=== PATIENT | female | born 1950 | race Caucasian/White ===

== ENCOUNTER 2020-03-25 15:34 | Emergency (ER) | payer MEDICARE, MEDICAID ==
[~2020-03-25] VITALS: Ht 160 cm; Wt 68.0 kg
[2020-03-25 16:50] VITALS: BP 119/67
--- NOTE | 2020-03-25 16:50 | NUR ---
ED Nurse Note: Pt sent in by Dr Agudelo for mononucla antibody. She was tested COVID + on 03/22. She styates she has bodyaches and chills, but no nausea or vomiting. She is alert and orientedx4, ambulatory. She has been seen by ERMD.
--- NOTE | 2020-03-25 16:52 | Emergency Room Report ---
History of Present Illness General Chief Complaint: Flu Like Symptoms Source: Patient Present Illness HPI 69-year-old female with history of hypertension and recent COVID-19 exposure ambulates into to the emergency department requesting IV monoclonal antibody. Patient was sent by her PCP Dr. Agudelo. Patient reports having 3 out of 10 severity body aches. She also reports increase in mucus. Patient denies fevers or chills. She denies history of asthma, COPD or smoking history. Patient reports that her roommate has been positive for Covid x2 weeks and did not disclose this to her until 1 week ago. She denies cough, shortness of breath, chest pain, palpitations, syncope, headaches, neck pain/stiffness, photophobia or dizziness. No other aggravating or relieving factors at this time. Allergies: Coded Allergies: PENICILLINS (Verified Allergy, Unknown, 03/25/20) Uncoded Allergies: EGGS (Allergy, Unknown, 03/25/20) COVID-19 Screening Contact w/high risk pt: No Experienced COVID-19 symptoms?: Yes COVID-19 Testing performed [employer]: Yes COVID-19 Screening: Negative COVID-19 COVID-19 Testing Source: 03/22/20 Patient History Past Medical History: see triage record, HTN Past Surgical History: none Pertinent Family History: none Social History: Denies: smoking, alcohol use, drug use Now: No Reviewed Nursing Documentation: PMH: Agreed; PSxH: Agreed Nursing Documentation-PMH Hx Hypertension: Yes Review of Systems All Other Systems: negative except mentioned in HPI Physical Exam Vital Signs Date Time Temp Pulse Resp B/P (MAP) Pulse Ox O2 Delivery O2 Flow Rate FiO2 03/25/20 15:44 98.2 86 15 115/65 (82) 95 Room Air Sp02 EP Interpretation: reviewed, normal General Appearance: no apparent distress, alert, GCS 15, non-toxic Head: normocephalic, atraumatic Eyes: bilateral eye normal inspection, bilateral eye PERRL ENT: hearing grossly normal, normal voice Neck: full range of motion Respiratory: chest non-tender, lungs clear, normal breath sounds, no respiratory distress, no accessory muscle use, no wheezing, speaking full sentences Cardiovascular #1: regular rate, rhythm Musculoskeletal: normal range of motion, gait/station normal, non-tender Neurologic: alert, motor strength/tone normal, oriented x3, sensory intact, responsive, speech normal Psychiatric: judgement/insight normal Skin: no rash, normal color Medical Decision Making PA Attestation Dr. Powers Is my supervising Physician whom patient management has been discussed with. Diagnostic Impression: Primary Impression: Close exposure to COVID-19 virus ER Course 69-year-old female with history of hypertension and recent COVID-19 exposure ambulates into to the emergency department requesting IV monoclonal antibody. Patient was sent by her PCP Dr. Agudelo. Patient reports having 3 out of 10 severity body aches. She also reports increase in mucus. Patient denies fevers or chills. She denies history of asthma, COPD or smoking history. Patient reports that her roommate has been positive for Covid x2 weeks and did not disclose this to her until 1 week ago. She denies cough, shortness of breath, chest pain, palpitations, syncope, headaches, neck pain/stiffness, photophobia or dizziness. No other aggravating or relieving factors at this time. Ddx considered but are not limited to Viral syndrome, Viral GE, URI, pneumonia, PE, strep pharyngitis, meningitis, COVID-19 Vital signs: Pt. is afebrile, the remaining VS are WNL H&PE are most consistent with Normal limited medical screening exam, patient is nontoxic in appearance in no acute distress not currently showing any symptoms and does not demonstrate increased respiratory effort or other signs of respiratory distress at this time. ORDERS: -Rapid COVID-19: NEGATIVE ED INTERVENTIONS: None required at this time. AT this time pt. does not meet current criteria and hospital protocol criteria to receive the EUA COVID monoclonal Ab treatment. This has been d/w pt. Pt. is not currently testing ( POSITIVE) for COVID and is a criteria that is not met. --PT. EDUCATION: Discussed self quarantine at home for recommended time of 10 days in accordance with CDC guidelines and [facility]. Discussed with patient that they will receive a copy of instructions of how to self quarantine as well as how to treat mild symptoms at home should they arise. Discussed with patient signs and symptoms that would indicate prompt return to the emergency department. Pt. verbalizes understanding and agreement with proposed treatment plan as well as reasons for ED return. This patient was evaluated in the context of the global COVID-19 pandemic, which necessitated consideration that the patient might be at risk for infection with the SARS-COV-2 virus that causes COVID-19. Institutional protocols and algorithms that pertaining to the evaluation of patients at risk for COVID-19 are in a state of rapid change based on information released by multiple regulatory bodies including the CDC and federal and state organizations. These policies and algorithms were followed during the patient's care in the emergency department. encouraged pt. to repeat covid testing in 5 days as outpatient. DISCHARGE: At this time pt. is stable for d/c to home. Will provide printed patient care instructions, and any necessary prescriptions. Care plan and follow up instructions have been discussed with the patient prior to discharge. Last Vital Signs Date Time Temp Pulse Resp B/P (MAP) Pulse Ox O2 Delivery O2 Flow Rate FiO2 03/25/20 15:44 98.2 86 15 115/65 (82) 95 Room Air Disposition: HOME, SELF-CARE Condition: Stable Scripts Acetaminophen* (TYLENOL EXTRA STRENGTH*) 500 Mg Tablet 500 MG ORAL Q6H PRN for Mild Pain/Temp > 100.5, #30 TAB 0 Refills Prov: Sandra Epstein 03/25/20 Referrals: NON PHYSICIAN (PCP) [facility]ily[facility] Patient Instructions: Medical Screening Exam Additional Instructions: Take medications as directed. Follow up with a Primary Care Provider in 3-5 days, even if your symptoms have resolved. --Please review list of primary care clinics, if you do not already have a primary care provider Return sooner to ED if new symptoms occur, or current symptoms become worse. - Please note that this Emergency Department Report was dictated using [employer] supervisor technology software, occasionally this can lead to erroneous entry secondary to interpretation by the dictation equipment. Sandra Epstein Mar 25, 2020 16:52
[2020-03-25] MEDS ORDERED: TYLENOL EXTRA500 MG ORAL (16:54)
[2020-03-25 17:22] VITALS: BP 128/66
--- NOTE | 2020-03-25 17:22 | NUR ---
ER DISCHARGE NOTE: Patient is cleared to be discharged per ERMD, pt is aox4, on room air, with stable vital signs. pt was given dc and prescription instructions, pt was able to verbalize understanding, pt id band removed. pt is able to ambulate with steady gait. pt took all belongings. Pt instructed regarding COVID.
== END 2020-03-25 17:23 | disposition home or self-care (01) ==
LOC: EMR 15:56
DX: Z23 Encounter for immunization (principal); M79.10 Myalgia, unspecified site; Z20.822 Contact with and (suspected) exposure to COVID-19; I10 Essential (primary) hypertension; Z88.0 Allergy status to penicillin; Z91.012 Allergy to eggs
CPT/HCPCS: 99282; U0002